=== PATIENT | male | born 1950 | race African-American/Black ===

== ENCOUNTER 2017-04-08 15:55 | Outpatient (CLI) | payer MEDICARE ==
--- NOTE | 2017-04-08 17:12 | ULT ---
TESTICULAR ULTRASOUND: 04/08/17 Ultrasonography of the scrotum was performed for evaluation of scrotal swelling. Documentary images and worksheets were provided and reviewed. There is what appears to be an extremely large hydrocele present that is responsible for the swelling. It is at least 9 cm in length. The right testicle measures approximately 4.2 cm long. Blood flow is present within it. No masses we re seen. The epididymis is normal in size and appearance on the right side. It is much more difficult to discern what structure is the left testicle. There is a small structure on the left side that has such an appearance, however, it is only 3.8 cm long and at the periphery of the hydrocele. It is difficult to identify an epididymis associated with it. Blood flow is presen t in this structure. IMPRESSION: 1. Extremely large hydrocele that occupies both sides of the scrotal sac. 2. Normal appearing right testicle and epididymis. 3. Presumed identification of what appears to be a slightly small left testicle with blood flow . Epididymis not clearly identified. Urological referral recommended. Code T POS: HOME
== END 2017-04-08 15:56 | disposition home or self-care (01) ==
LOC: BURULT 15:55
PROVIDERS: ATTEND Nurse Practitioner
DX: N50.89 Other specified disorders of the male genital organs (principal); N43.3 Hydrocele, unspecified
CPT/HCPCS: 76870; 93976

== ENCOUNTER 2024-09-29 02:13 | Emergency (ER) | payer OTHER ==
[2024-09-29] MEDS ORDERED: Aspirin Chewable 81 MG TAB ONE (02:46)
[2024-09-29 02:51] LABS: #Lymphocytes 1.4 thou/uL (1.20-3.40); #Monocytes 1.1 thou/uL (0.11-0.59); #Neutrophils 5.9 thou/uL (1.40-6.50); %Basophils 0.4 % (0.0-1.0); %Eosinophils 0.1 % (0.0-10.0); %Lymphocytes 16.7 % (21.0-51.0); %Neutrophils 69.9 % (42.0-75.0); Hemoglobin 11.1 g/dL (14.0-18.0); Mean Corpuscular HGB CONC 33.7 g/dL (32.0-36.0); Mean Corpuscular Hemoglobin 27.5 pg (27.0-31.0); Mean Corpuscular Volume 81.6 fl (78.0-98.0); Mean Platelet Volume 6.4 fL (7.4-10.4); Platelet Count 163 10x3/uL (130-400); RBC Distribution Width 11.1 % (11.5-14.5); Red Blood Cell (RBC) Count 4.05 mill/uL (4.70-6.10); White Blood Cell (WBC) Count 8.4 10x3/uL (4.8-10.8)
[2024-09-29] MEDS ORDERED: dilTIAZem 25 MG/5 ML VIAL ONE ×2 (03:01→04:19)
[2024-09-29 03:13] LABS: ALT (SGPT) 15 U/L (8-55); AST (SGOT) 9 U/L (5-34); Albumin 3.2 g/dL (3.4-4.8); Alkaline Phosphatase 62 U/L (40-110); Anion Gap 16 mmol/L (10-20); BUN (Urea Nitrogen) 13 mg/dL (8.4-25.7); Bilirubin, Total 0.6 mg/dL (0.2-1.2); Calc. Creatinine Clearance 0 mL/min (70-130); Calcium 9.3 mg/dL (7.8-10.44); Carbon Dioxide 21 mmol/L (23-31); Chloride 106 mmol/L (98-107); Estimated GFR 93; Globulin 4.7 g/dL (2.4-3.5); Glucose 130 mg/dL (83-110); Lipase 4 U/L (8-78); Potassium 3.7 mmol/L (3.5-5.1); Sodium 139 mmol/L (136-145)
[2024-09-29 03:18] LABS: Troponin I 0.015 ng/mL (< 0.028)
[2024-09-29 03:25] LABS: Protein, Total 7.9 g/dL (5.8-8.1)
[2024-09-29] MEDS ORDERED: Morphine 4 MG/ML VIAL ONE (03:25)
[2024-09-29 03:56] LABS: INR-International Normal Ratio 1.3; Prothrombin Time 16.3 sec (12.0-14.7)
[2024-09-29 04:00] LABS: D-Dimer Test 1.08 mcg/mL (0.27-0.43)
[2024-09-29] MEDS ORDERED: Iopamidol 370 76% 100 ML VIAL ONE (11:21)
== END 2024-09-29 08:39 | disposition short-term general hospital (02) ==
LOC: BURERS 02:13
DX: I48.91 Unspecified atrial fibrillation (principal); R07.9 Chest pain, unspecified; I10 Essential (primary) hypertension; Z79.899 Other long term (current) drug therapy
CPT/HCPCS: 71045; 71275; 83690; 83735; 83880; 84484; 85379; 85610; 85730; 93005; 94760; J2270; Q9967; 80053; 84443; 85025; 96361; 96374; 96375; 96376